=== PATIENT | male | born 1970 | race Caucasian/White ===

== ENCOUNTER 2023-04-07 08:02 | Day surgery (SDC) | payer OTHER, SELFPAY ==
[2023-03-29 11:06] VITALS: BMI 25.5
[2023-03-29 12:37] VITALS: BMI 25.4
--- NOTE | 2023-04-06 12:38 | P.PNAN_ITS ---
Anes - Initial Pre Proc Eval Procedure: Operation Date: 04/07/23 09:30 Proposed Procedures p Screening Colonoscopy - Segundo Davies MD Date/Time: 04/06/23 12:38 Surgeon: Segundo Davies MD Pre Op Diagnosis: Neoplasm Screening Patient Data Age: 52 Gender: M Height: 1.75 m Weight: 78 kg Allergies Allergy/AdvReac Type Severity Reaction Status Date / Time No Known Allergies Allergy Verified 04/07/23 08:17 Home Medications Medication Instructions Recorded Confirmed Type No Home Medications 03/29/23 04/07/23 History Patient hx anesthesia problems: none Family hx anesthesia problems: none Results Review: All pre-operative results and documents have been reviewed as part of the pre- operative evaluation. [facility], [facility] Past Medical History Medical History (Updated 04/07/23 @ 09:20 by Segundo Davies MD) Colon cancer screening Psoriasis Surgical History Surgical History (Updated 03/01/23 @ 14:52 by Reji Andrade MD) History of tonsillectomy 1981 Family History Family History (Updated 03/01/23 @ 14:54 by Reji Andrade MD) Father No problems noted. Mother No problems noted. Sibling Hypertension Social History Social History (Updated 04/07/23 @ 10:31 by Edson Jorgensen DO) Smoking status: Never smoker Tobacco type: cigarettes Alcohol intake: current Drinks per week: 30 Alcohol use details: at least 3 beers per day Substance use: never Substance use type: does not use Lack of Transportation: No Lack of Food: Never True Current Housing: I Have Housing Concerned About Future Housing: No Difficulty Paying Gas/Electric Bills: No Difficulty Paying for Meds: No Currently Unemployed: No Education: Bachelor's Degree Difficulty w/ Childcare or Family Care: No Living arrangements: with family Occupation/Education: occupation Gender identity (if verbalized by the patient): Male Sexual Orientation (if Verbalized by the Patient): Straight or Heterosexual Spiritual care concerns: No Anes - Eval Final PreProcedure Day of Procedure 04/06/23 12:38 Patient weight: overweight Heart: regular rate and rhythm Lungs: clear to auscultation Airway: Mallampati scale class II Neurological: alert and oriented Last oral intake: >/= 8 hours ASA classification: III Emergent: no Anesthetic plan: proceed Anesthesia type and monitoring: general GIVS and standard monitoring Results Review: All pre-operative results and documents have been reviewed as part of the pre- operative evaluation. Informed Consent: The patient's anesthetic plan and its attendant risks and benefits were discussed with the patient/family/POA. Questions were solicited and answers provided to the satisfaction of the patient/family/POA.
[2023-04-07 08:20] VITALS: BP 142/96; PULSE 64; RESP 14; TEMP 36.6; O2SAT 98; BMI 24.7
[2023-04-07] MEDS: LACTATED RINGERS 1,000 ML 150 ML IV CONT (08:33)
--- NOTE | 2023-04-07 09:19 | PM.HPGS ---
History of Present Illness History of Present Illness Consent: Risks, benefits, and alternatives have been discussed and questions answered. Patient agrees to proceed with procedure. Chief complaint: Neoplasm Screening Narrative: Luis Lira is a 52 year old male here for first screening colonoscopy Review of Systems Constitutional: Constitutional: Denies headache(s) and Denies weakness Eyes: Eyes: Denies blurry vision ENT: Reports Normal hearing present, Denies headache(s) and Denies neck pain Cardiovascular: Cardiovascular: Denies chest pain and Denies dyspnea Respiratory: Respiratory: Denies dyspnea Gastrointestinal: Gastrointestinal: Reports no additional gastrointestinal complaints Genitourinary: Genitourinary: Denies dysuria Musculoskeletal: Musculoskeletal: Denies neck pain Integumentary/Breasts: Skin/Breast: Denies dry skin Neurologic: Reports Normal hearing present, Denies headache(s) and Denies weakness Psychiatric: Psychiatric: Denies anxiety Endocrine: Endocrine: Denies change in body appearance Hematologic/Lymphatic: Hematologic/Lymphatic: Denies easy bleeding Allergic/Immunologic: Allergic/Immunologic: Denies urticaria PMF Past Medical History Medical History (Updated 04/07/23 @ 09:20 by Segundo Davies MD) Colon cancer screening Psoriasis Surgical History Surgical History (Updated 03/01/23 @ 14:52 by Reji Andrade MD) History of tonsillectomy 1981 Family History Family History (Updated 03/01/23 @ 14:54 by Reji Andrade MD) Father No problems noted. Mother No problems noted. Sibling Hypertension Social History Social History (Updated 03/01/23 @ 14:46 by Poppy Hernandez MA) Smoking status: Never smoker Tobacco type: cigarettes Alcohol intake: current Drinks per week: 30 Alcohol use details: 1-2 beers per day Substance use: never Substance use type: does not use Lack of Transportation: No Lack of Food: Never True Current Housing: I Have Housing Concerned About Future Housing: No Difficulty Paying Gas/Electric Bills: No Difficulty Paying for Meds: No Currently Unemployed: No Education: Bachelor's Degree Difficulty w/ Childcare or Family Care: No Living arrangements: with family Occupation/Education: occupation Gender identity (if verbalized by the patient): Male Sexual Orientation (if Verbalized by the Patient): Straight or Heterosexual Spiritual care concerns: No Meds Home Medications and Allergies Home Medications Medication Instructions Recorded Confirmed Type No Home Medications 03/29/23 04/07/23 History Allergies Allergy/AdvReac Type Severity Reaction Status Date / Time No Known Allergies Allergy Verified 04/07/23 08:17 Vital Signs Vital Signs - 24 hr 04/07/23 08:20 Temperature 98 F Pulse Rate 64 Respiratory Rate 14 Blood Pressure 142/96 H Pulse Oximetry 98 Oxygen Delivery Room Air Exam Const: General: comfortable and no acute distress HENMT: Face/Nose/Sinus: Normal nares present Eyes: General: appearance normal, both eyes and all related structures Neck: Neck: no JVD Resp: Auscultation: clear to auscultation bilaterally Cardio: Rate: regular rate Rhythm: regular rhythm GI: Inspection: non-distended GI Palp: Yes Soft to palpation Skin: General skin exam: normal color Neuro: General: gait normal Speech: normal speech Extrem: General: normal to inspection Psych: Mental Status: mental status grossly normal Assessment and Plan Assessment and plan (1) Colon cancer screening: Code(s): Z12.11 - Encounter for screening for malignant neoplasm of colon Status: Acute Assessment and Plan: colonoscopy
[2023-04-07 09:43] VITALS: BP 106/57; PULSE 63; RESP 16; O2SAT 100
[2023-04-07 09:53] VITALS: BP 102/74; PULSE 55; RESP 16; O2SAT 98
[2023-04-07 10:03] VITALS: BP 119/79; PULSE 59; RESP 16; O2SAT 98
--- NOTE | 2023-04-07 10:34 | WPDANESPN ---
Anes - Prog Note Post-Op Date/Time: 04/07/23 10:34 Cardiovascular status: normal Respiratory status: normal Airway patency: baseline Mental status: baseline Post-Op hydration status: normal Vital Signs: Last Vital Signs Temp 36.6 C 04/07/23 08:20 Pulse 59 L 04/07/23 10:03 Resp 16 04/07/23 10:03 BP 119/79 04/07/23 10:03 Pulse Ox 98 04/07/23 10:03 O2 Del Method Room Air 04/07/23 10:03 Pain Score (VAS): 0 I/O: Intake & Output 04/06/23 04/07/23 04/07/23 23:59 07:59 15:59 Intake Total 400 Balance 400 Post-procedural complaints: none Patient Feedback: Patient satisfied with anesthetic care. Other Findings: Patient vital signs back to baseline. Patient denies nausea and vomiting. Patient's pain under control. Patient OK for discharge.
== END 2023-04-07 10:13 | disposition home or self-care (01) ==
PROVIDERS: PCP Family Medicine; Visit Provider Internal Medicine Gastroenterology
PROC: 0DJD8ZZ Inspection of Lower Intestinal Tract, Via Natural or Artificial Opening Endoscopic (ICD-10-PCS; CPT 45378; principal; 2023-04-07 09:30)
DX: Z12.11 Encounter for screening for malignant neoplasm of colon (principal); K64.8 Other hemorrhoids
CPT/HCPCS: 45378